=== PATIENT | male | born 1985 | race Caucasian/White ===

== ENCOUNTER 2023-09-12 10:44 | Emergency (ER) | payer BC ==
[~2023-09-12] VITALS: Ht 177.8 cm; Wt 90.0 kg
[2023-09-12 10:50] VITALS: BP 154/94; TEMP 98.6; O2SAT 100
[2023-09-12 10:51] VITALS: PULSE 78
[2023-09-12] MEDS: KETOROLAC 60MG/2ML VIAL IM ONE (11:30)
[2023-09-12] MEDS: DIAZEPAM 5 MG TABLET PO STA (12:00)
[2023-09-12] MEDS: KETOROLAC 30MG/ML VIAL IM ONE (12:00)
[2023-09-12 12:30] VITALS: RESP 16
[2023-09-12] MEDS ORDERED: METH-773 MT (12:36)
[2023-09-12] MEDS ORDERED: IBUP-2029 MT (12:36)
[2023-09-12] MEDS ORDERED: LIDO700A30 TP (12:36)
== END 2023-09-12 12:50 | disposition home or self-care (01) ==
LOC: ER 10:59
DX: M54.40 Lumbago with sciatica, unspecified side (principal)
CPT/HCPCS: 72100; 96372; 99283; J1885; Z7610

== ENCOUNTER → 2023-10-29 | Outpatient (CLI) | payer BC ==
[~2023-10-29] MED LIST: IBUP-2029 MT; LIDO700A30 TP; METH-773 MT
== END | disposition home or self-care (01) ==
LOC: MRI 08:52
PROVIDERS: ATTEND Neurological Surgery
DX: M51.36 Other intervertebral disc degeneration, lumbar region (principal); M51.37 Other intervertebral disc degeneration, lumbosacral region; M48.061 Spinal stenosis, lumbar region without neurogenic claudication; M48.07 Spinal stenosis, lumbosacral region
CPT/HCPCS: 72148

== ENCOUNTER 2024-07-09 23:54 | Emergency (ER) | payer BC ==
[~2024-07-09] VITALS: Ht 180.3 cm; Wt 95.4 kg
[2024-07-09 23:55] VITALS: O2SAT 97
[2024-07-09 23:58] VITALS: TEMP 37.1; O2SAT 100
[2024-07-10] MEDS ORDERED: KETOROLAC 15MG/ML VIAL IM ONE (00:30)
[2024-07-10 00:36] VITALS: BP 148/92; PULSE 85; RESP 18
[2024-07-10] MEDS: KETOROLAC 15MG/ML VIAL IM NR (00:36)
[2024-07-10] MEDS: LIDOCAINE 5% PATCH TOP SCH (00:36)
[2024-07-10] MEDS ORDERED: NAPR-1176 MT (00:42)
[2024-07-10] MEDS ORDERED: LIDO700A15 TP (00:42)
== END 2024-07-10 00:54 | disposition home or self-care (01) ==
LOC: ER 23:54
DX: M54.40 Lumbago with sciatica, unspecified side (principal); G58.8 Other specified mononeuropathies; Z79.1 Long term (current) use of non-steroidal anti-inflammatories (NSAID); Z79.899 Other long term (current) drug therapy
CPT/HCPCS: 99283; 96372; J1885